=== PATIENT | female | born 1950 | race Native Hawaiian/Other Pacific Islander ===

== ENCOUNTER 2020-05-05 21:55 | Emergency (ER) | payer OTHER ==
[~2020-05-05] VITALS: Ht 177.8 cm; Wt 92.1 kg
[2020-05-05 21:55] VITALS: TEMP 98.6
[2020-05-05 22:35] LABS: PLATELET COUNT 108 K/uL (152-353)
[2020-05-05 22:45] LABS: POTASSIUM 3.6 mmol/L (3.6-5.2)
[2020-05-05 23:43] VITALS: BP 139/70
[2020-05-06] MEDS ORDERED: CYANOCOBALAMIN INJ (03:26)
[2020-05-06] MEDS ORDERED: FLUTICASON50 MCG/AC1 NAS (03:28)
[2020-05-06] MEDS ORDERED: FUROSEMIDE20 MG PO (03:29)
[2020-05-06] MEDS ORDERED: LACTULOSE10 GM/15 M PO (03:32)
[2020-05-06] MEDS ORDERED: LAMICTAL100 MG PO (03:33)
[2020-05-06] MEDS ORDERED: SEROQUEL300 MG PO (03:34)
[2020-05-06] MEDS ORDERED: XIFAXAN550 MG PO (03:35)
[2020-05-06] MEDS ORDERED: ROSU10TA PO (03:36)
[2020-05-06] MEDS ORDERED: ZOLOFT25 MG PO (03:37)
[2020-05-06] MEDS ORDERED: TRADJENTA5 M1 PO (03:38)
[2020-05-06] MEDS ORDERED: ATEN25TA21 PO (03:40)
[2020-05-06] MEDS ORDERED: BUSP15TAB2 PO (03:40)
[2020-05-06] MEDS ORDERED: LANTUS100 UNIT/M SC (03:42)
[2020-05-06] MEDS ORDERED: EUTHYROX75 MCG PO (03:42)
[2020-05-06] MEDS ORDERED: SEROQUEL25 MG PO (03:44)
[2020-05-06] MEDS ORDERED: POTA10CA3 PO (03:44)
[2020-05-10] MEDS ORDERED: CLON0.5T36 PO (09:30)
== END 2020-05-06 00:23 | disposition other institution (70) ==
LOC: ED 22:09
PROVIDERS: Family Medicine
DX: R46.89 Other symptoms and signs involving appearance and behavior (principal); F31.89 Other bipolar disorder; Z11.59 Encounter for screening for other viral diseases; Z04.6 Encounter for general psychiatric examination, requested by authority
CPT/HCPCS: 36415; 80053; 81000; 85027; 87635; 93005; 99283; 99284; U0003